=== PATIENT | female | born 2000 | race Native Hawaiian/Other Pacific Islander ===

== ENCOUNTER 2025-02-02 10:33 | Emergency (ER) | payer OTHER ==
[~2025-02-02] VITALS: Ht 165.1 cm; Wt 96.3 kg
[2025-02-02 14:58] VITALS: BP 109/60; TEMP 97.1; O2SAT 98
== END 2025-02-02 15:06 | disposition home or self-care (01) ==
LOC: M ED 10:33
DX: D24.1 Benign neoplasm of right breast (principal)

== ENCOUNTER 2025-03-13 19:46 | Emergency (ER) | payer OTHER ==
[~2025-03-13] VITALS: Ht 157.5 cm; Wt 96.2 kg
[2025-03-14 00:29] LABS: BASO % 0.2 % (0.0-1.0); EOS # 0.1 10^3/uL (0.0-0.5); EOS % 1.3 % (0.0-3.0); HEMATOCRIT 39.2 % (36.0-47.0); HEMOGLOBIN 13.1 g/dl (12.0-15.5); LYMPH # 2.9 10^3/uL (1.5-5.0); LYMPH % 35.1 % (24.0-44.0); MEAN CORPUSCULAR HEMOGLOBIN 29.6 pg (27.0-33.0); MEAN CORPUSCULAR HGB CONC 33.4 g/dl (32.0-36.5); MEAN CORPUSCULAR VOLUME 88.5 fl (80.0-96.0); MONO # 0.7 10^3/uL (0.0-0.8); MONO % 8.7 % (2.0-8.0); NEUTROPHILS # 4.5 10^3/uL (1.5-8.5); NEUTROPHILS % 54.5 % (36.0-66.0); PLATELET COUNT, AUTOMATED 321 10^3/uL (150-450); RED BLOOD COUNT 4.43 10^6/uL (4.00-5.40); WHITE BLOOD COUNT 8.3 10^3/uL (4.0-10.0)
[2025-03-14 00:33] VITALS: BP 119/73; TEMP 98; O2SAT 98
[2025-03-14 00:35] LABS: D-DIMER QUANT < 0.27 ug/mL (<0.5); INR 0.93; PARTIAL THROMBOPLASTIN TIME 36.8 SECONDS (24.8-34.2); PROTHROMBIN TIME 12.8 SECONDS (12.5-14.5)
[2025-03-14 00:51] LABS: BLOOD UREA NITROGEN 13 MG/DL (9-23); CALCIUM LEVEL 8.9 MG/DL (8.5-10.1); CARBON DIOXIDE LEVEL 27 MMOL/L (20-31); CHLORIDE LEVEL 104 MMOL/L (98-107); CREATININE FOR GFR 0.66 MG/DL (0.55-1.30); GLOMERULAR FILTRATION RATE > 90.0 (>60); GLUCOSE, FASTING 79 MG/DL (60-100); POTASSIUM SERUM 3.6 MMOL/L (3.5-5.1); SODIUM LEVEL 139 MMOL/L (136-145)
[2025-03-14 00:56] LABS: HCG, SERUM QUALITATIVE NEGATIVE (NEGATIVE)
[2025-03-14] MEDS ORDERED: BENZ200C70 PO (01:07)
== END 2025-03-14 01:20 | disposition home or self-care (01) ==
LOC: M ED 19:46
DX: J06.9 Acute upper respiratory infection, unspecified (principal); R04.2 Hemoptysis